=== PATIENT | female | born 1980 | race Caucasian/White ===

== ENCOUNTER → 2021-10-04 12:14 | Outpatient (CLI) | payer OTHER, SELFPAY ==
--- NOTE | ~2021-10-04 | MM_ITS ---
EXAMINATION: MM scrn thao implant BI w ramakrishna HISTORY: Screening mammogram TECHNIQUE: Craniocaudal and mediolateral oblique 3-D tomosynthesis images with implant displacement a nd synthetic 2-D images were generated. Craniocaudal and mediolateral oblique views of the breasts wi thout implant displacement were obtained using full field digital mammography. CAD analysis was submi tted and interpreted. COMPARISON: None, baseline BREAST PARENCHYMAL COMPOSITION: The breasts are extremely dense, which lowers the sensitivity of mamm ography. FINDINGS: There is no evidence of suspicious mass, calcification, or architectural distortion to sugg est malignancy in either breast. IMPRESSION: 1. No mammographic evidence of malignancy. 2. Recommend routine screening mammography in one year. BI-RADS Category 1: Negative Reviewed, dictated and finalized at location A. [employer]
== END ==
PROVIDERS: Visit Provider Obstetrics & Gynecology
DX: Z12.31 Encounter for screening mammogram for malignant neoplasm of breast (principal)
CPT/HCPCS: 77063; 77067

== ENCOUNTER → 2023-02-21 13:19 | Outpatient (CLI) | payer OTHER, SELFPAY ==
--- NOTE | ~2023-02-21 | MM_ITS ---
EXAMINATION: MM scrn thao implant BI w ramakrishna HISTORY: Screening mammogram TECHNIQUE: Craniocaudal and mediolateral oblique 3-D tomosynthesis images with implant displacement a nd synthetic 2-D images were generated. Craniocaudal and mediolateral oblique views of the breasts wi thout implant displacement were obtained using full field digital mammography. CAD analysis was submi tted and interpreted. COMPARISON: 10/04/2021 bilateral implant screening mammogram BREAST PARENCHYMAL COMPOSITION: The breasts are extremely dense, which lowers the sensitivity of mamm ography. FINDINGS: Status post bilateral augmentation mammoplasty. Occasional benign calcifications. There is no evidence of suspicious mass, calcification, or architectural distortion to suggest malignancy in e ither breast. There has been no suspicious interval change. IMPRESSION: 1. No mammographic evidence of malignancy. 2. Recommend routine screening mammography in one year. BI-RADS Category 1: Negative Reviewed, dictated and finalized at location A.
== END ==
PROVIDERS: PCP Registered Nurse; Visit Provider Obstetrics & Gynecology
DX: Z12.31 Encounter for screening mammogram for malignant neoplasm of breast (principal)
CPT/HCPCS: 77063; 77067

== ENCOUNTER 2025-05-23 00:53 | Day surgery (SDC) | payer OTHER, SELFPAY ==
[2025-05-02 10:55] VITALS: BMI 20.5
--- OUTSIDE RECORDS SUMMARY | 2025-05-23 00:56 | XMS_ITS | Data Portability ---
Author Organization [facility] Address [address] [place] [address] Care Team Providers Care Credit Front Office Developer Name Role Phone STEPHAN KAMINSKI Primary Care Provider [phone] Assessment Encounter Date Assessment Date Assessment LastModified by Organization Details LastModified Time 09/28/2022 09/28/2022 metrogel vulvar care guidelines discussed FU WWE [email or web address] Not available 09/30/2022 08:18:26 12/28/2022 12/28/2022 healthy female exam patient declines std testing pap done, discussed colpo if still ASCUS since persistent since 2019 even though HPV neg mammogram encouraged, scheduled next month contraception-va sectomy will try Rephresh gel at onset of BV sx FU 1 year or prn [email or web address] Not available 12/28/2022 12:32:34 01/11/2024 01/11/2024 Annual gynecological exam performed. Patient will come back in a year unless there are new symptoms. [email or web address] Not available 01/11/2024 18:17:36 01/08/2025 01/08/2025 Annual gynecological exam performed. Patient will come back in a year unless there are new symptoms. [email or web address] Not available 01/08/2025 14:07:35 Plan of Treatment Reminders Order Date Submit Date Provider Last Modified By Organization Details Last Modified Time Details Appointments None recorded. Lab pap, IG + HR HPV - HPV regardless but if HPV is positive need subtyping 16,18/[address]/GC/Tric h 2024 025 [facility] (Lab), [address], [place], [address], 5 17:10:45 HBsAg (hepatitis B surface Ag), serum 2024 025 [facility] (Lab), [address], [place], [address], 5 20:30:58 Referral None recorded. Procedures colonoscop y screening (PROC) 2024 025 [facility], [address], [address], [place], [address], 5 15:08:03 Surgeries None recorded. Imaging MAMMO, screening, digital, bilateral 2024 025 [facility], [address], [place], [address], 5 14:22:38 MAMMO, screening, bilateral 2023 024 [email or web address] [facility], [address], [place], [address], 4 15:12:23 Medication Orders metronidaz ole 0.75 % (37.5 mg/5 gram) vaginal gel 2021 [facility]22 [id number], [address], [place], [place], [id number], 3 09:25:33 Patient TargetsNo targets recorded. Patient InstructionsNo instructions recorded. Reason for Referral None Reported. Results Created Date Observation Date Name Description Value Unit Range Abnormal Flag Note LastModifiedBy Organization Detail LastModifiedTime 12/28/1912/28/2022 IMAGE GUIDE D PAP AND HPV REGAR DLESS image guided Pap, HPV regardless of Pap result SEE RESULT S BELOW CASE REPOR T: Cytol ogy Gynec ologi chintan Repor t Case: [id number] Autho ray morrow Provi barb: Mireya Kuo MD Colle cted: 12/28 1232 Order ing Locat ion: [place] Patho logy Recei gabriele: 12/29 0649 First Scree n: Chanda Mcpherson ret, CT Speci men: Scree colt Pap - Image d, Cervi x STATE MENT OF ADEQU ACY: Satis facto ry for evalu ation Trans forma tion zone compo nent prese nt FINAL DIAGN OSIS: Negat marisol for Intra epith elial Lesio n or Ewelina kay (NIL) . Elect eduardo navarro yamileth d by Chanda Mcpherson ret, CT on 2022 at 6:27 AM ----- ----- ----- ----- ----- ----- ----- ----- ----- ----- ----- ----- ----- ----- ----- ----- ----- ---- HPV RESUL TS: HPV mRNA E6/E7 : No HPV mRNA Detec jeanine NOTE: This high risk HPV mRNA assay detec ts fourt een high- risk HPV types (16, 18, 31, 33, 35, 39, 45, 51, 52, 56, 58, 59, 66, 68) witho ut diffe renti ation . COMME NT: Note: This speci men was revie wed by a Cytot echno logis t and/o r Patho logis t (as indic ated in this repor t) after evalu ation using the Thinp rep Imagi ng Syste m. CLINI CHINTAN INFOR MATIO N: Menst rual Statu s: LMP (if appli cable ): Clini chintan Histo ry/Pr eviou s Pap: Type of Neopl bernie (if appli cable ): Signi fican t Clini chintan Findi ngs: Other Histo ry: Hormo mena (if appli cable ): PAP EDUCA ALEJANDRO L NOTE: The Pap Test is a scree colt test with an inher ent false negat marisol rate. Liqui d-bas ed sampl ing may decre ase, but will not elimi robyn, false negat marisol resul ts. A negat marisol resul t does not precl ude the prese nce and/o r devel opmen t of disea se, since the prese nce of abnor mal cells in the sampl e depen ds on the locat ion of the lesio n and sampl ing techn ique. Lindsey nued regul ar scree colt is the best metho d of cance r preve ntion . If repor jeanine cytol ogic findi ng do not corre late with physi chintan and/o r histo rical findi ngs, furth er inves tigat ion is recom danilo d, as clini jesika milian nted. 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 Satinder carson d by Dion Caceres MD on 024 at 2:03 PM ----- ----- ----- ----- ----- ----- ----- ----- ----- ----- ----- ----- ----- ----- ----- ----- ----- ---- HPV RESUL TS: HPV mRNA E6/E7 : No HPV mRNA Detec jeanine NOTE: This high risk HPV mRNA assay detec ts fourt een high- risk HPV types (16, 18, 31, 33, 35, 39, 45, 51, 52, 56, 58, 59, 66, 68) witho ut diffe renti ation . COMME NT: This speci men was revie wed by a Cytot echno logis t and/o r Patho logis t (as indic ated in this repor t) after evalu ation using the Thinp rep Imagi ng Syste m. CLINI CHINTAN INFOR MATIO N: Menst rual Statu s: LMP (if appli cable ): 12/24 Clini chintan Histo ry/Pr eviou s Pap: Type of Neopl bernie (if appli cable ): Signi fican t Clini chintan Findi ngs: Other Histo ry: Hormo mena (if appli cable ): PAP EDUCA ALEJANDRO L NOTE: The Pap Test is a scree colt test with an inher ent false negat marisol rate. Liqui d-bas ed sampl ing may decre ase, but will not elimi robyn, false negat marisol resul ts. A negat marisol resul t does not precl ude the prese nce and/o r devel opmen t of disea se, since the prese nce of abnor mal cells in the sampl e depen ds on the locat ion of the lesio n and sampl ing techn ique. Lindsey nued regul ar scree colt is the best metho d of cance r preve ntion . If repor jeanine cytol ogic findi ng do not corre late with physi chintan and/o r histo rical findi ngs, furth er inves tigat ion is recom danilo d, as clini jesika milian nted. Not Available [facility] (Lab) [address], [place], [address], 01/18/2024 15:05:51 01/08/2001/08/2025 HBSAG /HCV/ HIV/R HI hepatitis B surface antigen Non-re active non-re active This assay was perfo rmed using [facility] Cor[employer] ratio n reage nts and test kits. Value s obtai dex with other assay metho ds or kits canno t be used inter short eably . Not Available [facility] (Lab) [address], [place], [address], 01/09/2025 20:30:58 01/08/2001/08/2025 HBSAG /HCV/ HIV/R HI HIV antigen/anti body Reacti ve nonrea ctive abnormal This is a scree colt test. Refer to the confi rmato ry HIV 1/2 Antib susie Diffe renti ation resul ts. A confi rmato ry HIV-1 and HIV-2 Antib susie Diffe renti ation test will be perfo rmed on this speci men. Not Available [facility] (Lab) [address], [place], [address], 01/09/2025 20:30:58 01/08/20 25 01/08/2025 HBSAG /HCV/ HIV/R HI hepatitis C antibody Non-re active non-re active Antib odies to HCV Not Detec jeanine, does not exclu de the possi bilit y of expos ure to HCV. Not Available [facility] (Lab) [address], [place], [address], 01/09/2025 20:30:58 01/08/2001/08/2025 HBSAG /HCV/ HIV/R HI RPR qualitative Nonrea ctive nonrea ctive Not Available [facility] (Lab) [address], [place], [address], 01/09/2025 20:30:58 01/08/20 25 01/08/2025 HIV 1/2 ANTIB SUSIE DIFFE RENTI ATION HIV-1 Ab differentiat ion Negati ve negati ve Not Available [facility] (Lab) [address], [place], [address], 01/09/2025 20:30:59 01/08/20 25 01/08/2025 HIV 1/2 ANTIB SUSIE DIFFE RENTI ATION HIV-2 Ab differentiat ion Negati ve negati ve Not Available [facility] (Lab) [address], [place], [address], 01/09/2025 20:30:59 01/08/20 25 01/08/2025 IMAGE GUIDE D PAP AND HPV REGAR DLESS image guided Pap, HPV regardless of Pap result SEE RESULT S BELOW abnormal CASE REPOR T: Cytol ogy Gynec ologi chintan Repor t Case: [id number] Autho ray g Provi barb: Adriana duque, Layne , ANP, 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 This assay can diffe renti ate HPV 16 from HPV 18/45 , but does not diffe renti ate betwe en HPV 18 and HPV 45. A negat marisol HPV 16, 18/45 genot ype assay resul t does not exclu de the possi bilit y of cytol ogic abnor malit ies or of futur e or under lying ABIGAIL 1, ABIGAIL 3 or cance r. COMME NT: This speci men was revie wed by a Cytot echno logis t and/o r Patho logis t (as indic ated in this repor t) after evalu ation using the Thinp rep Imagi ng Syste m. CLINI CHINTAN INFOR MATIO N: Menst rual Statu s: LMP (if appli cable ): Clini chintan Histo ry/Pr eviou s Pap: Type of Neopl bernie (if appli cable ): Signi fican t Clini chintan Findi ngs: Other Histo ry: Hormo mena (if appli cable ): SUGGE STED FOLLO W-UP: Follo w up as warra nted, based on curre nt guide lines and indiv idual patie nt consi derat ions. Not Available [facility] (Lab) [address], [place], [address], 01/13/2025 17:10:45 01/08/20 25 01/08/2025 TRICH OMONA S VAGIN TERRENCE (RRNA ) trichomonas vaginalis ribosomal RNA (rrna) Negati ve negati ve Not Available [facility] (Lab) [address] [place], [address], 01/13/2025 17:10:45 01/08/20 25 01/08/2025 CT/GC (DAMNO) , THINP REP VIAL chlamydia trachomatis, PCR Negati ve negati ve Not Available [facility] (Lab) [address], [place], [address], 01/13/2025 17:10:46 01/08/20 25 01/08/2025 CT/GC (DAMON) , THINP REP VIAL neisseria gonorrhoeae, PCR Negati ve negati ve Not Available [facility] (Lab) [address], [place], [address], 01/13/2025 17:10:46 01/14/20 25 01/13/2025 HIV 1/2 ANTIB SUSIE DIFFE RENTI ATION HIV-1 Ab differentiat ion Negati ve negati ve Not Available [facility] (Lab) [address], [place], [address], 01/18/2025 14:23:52 01/14/20 25 01/13/2025 HIV 1/2 ANTIB SUSIE DIFFE RENTI ATION HIV-2 Ab differentiat ion Negati ve negati ve Not Available [facility] (Lab) [address], [place], [address], 01/18/2025 14:23:52 01/14/20 25 01/13/2025 HIV 1/2 ANTIG EN/AN TIBOD Y, REFLE X CONFI RMATI ON HIV antigen/anti body Reacti ve nonrea ctive abnormal This is a scree colt test. Refer to the confi rmato ry HIV 1/2 Antib susie Diffe renti ation resul ts. A confi rmato ry HIV-1 and HIV-2 Antib susie Diffe renti ation test will be perfo rmed on this speci men. Not Available [facility] (Lab) [address], [place], [address], 01/18/2025 14:23:52 01/14/20 25 01/13/2025 HIV-1 , QUANT ITATI VE, RT PCR (GRAP HICAL ) HIV 1 RNA by PCR <20 copie s/mL HIV-1 RNA not detec jeanine The repor table range for this assay is 20 to 10,00 0,000 copie s HIV-1 RNA/m L. Not Available [facility] (Lab) [address], [place], [address], 01/18/2025 14:23:52 01/14/20 25 01/13/2025 HIV-1 , QUANT ITATI VE, RT PCR (GRAP HICAL ) log10 HIV-1 RNA Unabl e to calcu late resul t since non-n umeri c resul t obtai dex for compo nent test. Perfo rmed at: 01 - [facility] [place] [address] , [place] [address] [address]: Pastora crowe MD, Phone : [phone] Not Available [facility] (Lab) [address], [place], [address], 01/18/2025 14:23:52 01/14/20 25 01/13/2025 HIV-2 , DNA/R NA QUALI TATIV E, REAL- TIME PCR HIV-2 DNA/RNA NOT DETECT ED REFER ENCE RANGE : NOT DETEC JEANINE This test was devel oped and its orlando tical perfo rmanc e adilia cteri stics have been deter mined by [facility]. It has not been clear ed or appro gabriele by FDA. This assay has been valid ated pursu ant to the CLIA regul ation s and is used for clini chintan purpo ses. Test Perfo rmed by: [facility] [id number] [place] [address] Not Available [facility] (Lab) [address], [place], [address], 01/18/2025 14:23:53 02/06/20 25 02/10/2025 BIOPS Y, ENDOC ERVIC AL endocervical curettage histology Negati ve normal Not Available [facility] ([facility]) [address], [place], [address], 02/10/2025 14:55:06 02/06/20 25 02/10/2025 BIOPS Y, ENDOC ERVIC AL results GROSS ING INFOR MATIO N: (B1) ENDOC ERVIX Recei gabriele in forma malena on a ECC brush is a 2.5 cm aggre gate of red-b rown mater ial, total ly submi tted. B1 DIAGN OSIS: (B1) ENDOC ERVIX Benig n ectoc ervic al and endoc ervic al tissu e. No intra epith elial lesio n. UNSP ABNOR MAL CYTOL OG FINDI NGS IN SPECM N FROM CERVI X UTERI (R87. 619) Not Available [facility] ([facility]) [address], [place], [address], 02/10/2025 14:55:06 02/22/20 23 02/21/2023 MAMMO , scree colt, bilat eral No observ ation record ed. [email or web address] [facility] [address], [place], [address], 01/11/2024 18:22:42 Result Notes None recorded. Problems Name Problem SNOMED Code Status Onset Date Resolution Date Notes Provider Name and Address Organization Details Recorded Time SNOMED CT Concept Completed 201603/26/2021 Encntr for dope heater exam (general ) (routine ) w/o abn findings ;Practic e ID: 0001 Mireya Lopez MD [address], [place], [address], [facility] 10:07:38 Acne [id number] Completed 201703/26/2021 Acne, unspecif ied;Prac katie ID: 0001 Mireya Lopez MD [address], [place], [address], [facility] [address] 10:06:[address] Concept Completed 201803/26/2021 Encntr for general adult medical exam w/o abnormal findings ;Practic e ID: 0001 Mireya Lopez MD [address], [place], [address], [facility] 1 10:07:34 Emotiona l state finding Completed 201803/26/2021 Other specifie d anxiety disorder s;Practi ce ID: 0001 Mireya Lopez MD [address], [place], [address], [facility] [address] 10:07:[address] Concept Completed 201803/26/2021 Anxiety disorder , unspecif ied;Prac katie ID: 0001 Mireya Lopez MD [address], [place], [address], [facility] 1 10:07:33 Malaise and fatigue [id number] Completed 201101/06/2014 Fatigue / Malaise; Recorded Elsewher e: No Locat ion: [facility] S ource: EHR Benefits Clerk chevy: N Practi ce ID: 0001 Willam lable Time: 10:30:00 AM Not Available [facility] 0 16:38:34 Routine antenata l care Completed 201203/26/2021 Supervis ion of other normal pregnanc y;Record ed Elsewher e: No Locat ion: [facility] S ource: EHR Benefits Clerk chevy: N Practi ce ID: 0001 Willam lable Time: 02:15:00 PM Mireya Lopez MD [address], [place], [address], [facility] 1 10:07:26 Pregnanc y test positive [id number] Completed 201201/06/2014 Pregnanc y examinat ion or test, positive result;R ecorded Elsewher e: No Locat ion: [facility] S ource: EHR Benefits Clerk chevy: N Practi ce ID: 0001 Willam lable Time: 02:15:00 PM Mireya Lopez MD [address], [place], [address], [facility] 1 10:07:21 Screenin g for malignan t neoplasm of cervix Completed 201203/26/2021 Screenin g for malignan t neoplasm s of the cervix;R ecorded Elsewher e: No Locat ion: [facility] S ource: EHR Benefits Clerk chevy: N Practi ce ID: 0001 Willam lable Time: 09:15:00 AM Mireya Lopez MD [address], [place], [address], [facility] 1 10:07:28 Constipa tion [id number] Completed 201303/26/2021 Constipa tion;Rec orded Elsewher e: No Locat ion: [facility] S ource: EHR Benefits Clerk chevy: N Practi ce ID: 0001 Willam lable Time: 01:30:00 PM Mireya Lopez MD [address], [place], [address], [facility] 1 10:07:00 Amenorrh ea [id number] Completed 201201/06/2014 Absence of menstrua tion;Rec orded Elsewher e: No Locat ion: [facility] S ource: EHR Benefits Clerk chevy: N Practi ce ID: 0001 Willam lable Time: 02:15:00 PM Mireya Lopez MD [address], [place], [address], [facility] 1 10:06:57 Speciali zed medical examinat ion Completed 201203/26/2021 Gynecolo gical Examinat ion;Raul rded Elsewher e: No Locat ion: [facility] S ource: EHR Benefits Clerk chevy: N Practi ce ID: 0001 Willam lable Time: 09:15:00 AM Mireya Lopez MD [address], [place], [address], [facility] 1 10:07:41 Removal of intraute rine device Completed 201101/06/2014 REMOVAL OF IUD;Raul rded Elsewher e: No Locat ion: [facility] S ource: EHR Benefits Clerk chevy: N Practi ce ID: 0001 Willam lable Time: 01:45:00 PM Not Available [facility] 0 16:38:35 Depressi ve disorder [id number] Completed 201508/27/2021 Depressi on;Recor ded Elsewher e: No [facility] S ource: EHR Benefits Clerk chevy: N Practi ce ID: 0001 Willam lable Time: 03:30:00 PM Tammy jose, [facility] 1 12:03:23 Vaginiti s and vulvovag initis Completed 201303/26/2021 Vaginiti s;Record ed Elsewher e: No [facility] EHR Benefits Clerk chevy: N Practi ce ID: 0001 Willam lable Time: 01:30:00 PM Mireya Lopez MD [address], [place], [address], [facility] 1 10:07:45 Postpart um care Completed 201303/26/2021 Post Followup ;Recorde d Elsewher e: No Locat ion: [facility] S ource: EHR Benefits Clerk chevy: N Practi ce ID: 0001 Willam lable Time: 11:00:00 AM Mireya Lopez MD [address], [place], [address], [facility] 1 10:07:17 Atypical squamous cells of undeterm ined signific ance on cervical Papanico laou smear [id number] Active 2011 Tammy jose, [facility] 12:03:26 Postpart um care Completed 201301/06/2014 Post Followup ;Recorde d Elsewher e: No [facility] S ource: EHR Benefits Clerk chevy: N Practi ce ID: 0001 Willam lable Time: 10:30:00 AM Mireya Lopez MD [address], [place], [address], [facility] 10:07:17 Amenorrh ea [id number] Completed 201003/26/2021 AMENORRH EA;Pract ice ID: 0001 Mireya Lopez MD [address], [place], [address], [facility] 10:06:57 Pregnanc y test positive [id number] Completed 201003/26/2021 Positive Pregnanc y Test;Pra ctice ID: 0001 Mireya Lopez MD [address], [place], [address], [facility] 10:07:21 Threaten ed miscarri age [id number] Completed 201003/26/2021 Threaten ed , antepart um;Pract ice ID: 0001 Mireya Lopez MD [address], [place], [address], [facility] 10:07:48 Primigra catie [id number] Completed 201003/26/2021 Supervis ion of normal first pregnanc y;Practi ce ID: [address], [place], [address], [facility] 10:07:24 anatomy study Completed 201003/26/2021 [facility] SURVEY;P ractice ID: 0001 Mrieya Lopez MD [address], [place], [address], [facility] 1 10:07:10 Excessiv e growth affectin g manageme nt of mother [id number] Completed 201003/26/2021 GROWTH LARGE LGA;Prac kaite ID: 0001 Mireya Lopez MD [address], [place], [address], [facility] 1 10:07:08 Postpart um care Completed 201101/06/2014 Routine postpart um follow-u p;Record ed Elsewher e: No Locat ion: [facility] S ource: EHR Benefits Clerk chevy: N Practi ce ID: 0001 Willam lable Time: 09:30:00 AM Mireya Lopez MD [address], [place], [address], [facility] 1 10:07:17 Adult health examinat ion Completed 201403/26/2021 ROUTINE MEDICAL EXAM;Rec orded Elsewher e: No Locat ion: [facility] S ource: EHR Benefits Clerk chevy: N Practi ce ID: 0001 Willam lable Time: 08:30:00 AM Mireya Lopez MD [address], [place], [address], [facility] 1 10:06:53 Insertio n of intraute rine contrace ptive device Completed 201101/06/2014 INSERTIO N OF IUD;Raul rded Elsewher e: No Locat ion: [facility] S ource: EHR Benefits Clerk chevy: N Practi ce ID: 0001 Willam lable Time: 01:00:00 PM Not Available [facility]:38[facility]37 [id number] Com[facility] 201203/26/2021 [facility] hmerz;Re corded Elsewher e: No [facility]: EHR Benefits Clerk chevy: N Practi ce ID: 0001 Willam lable Time: 09:15:00 AM Mireya Lopez MD [address], [place], [address], [facility] 1 10:07:15 Pregnanc y test negative [id number] Completed 201101/06/2014 Pregnanc y examinat ion or test, negative result;R ecorded Elsewher e: No [facility] S ource: EHR Benefits Clerk chevy: N Jonyti ce ID: 0001 Willam lable Time: 01:00:00 PM Mireya Lopez MD [address], [place], [address], [facility] 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 1 10:07:13 Abnormal heart rate [id number] Completed 201003/26/2021 Abnormal ity in heart rate or rhythm, unspecif ied as to time of onset;Pr actice ID: 0001 Mireya Lopez MD [address], [place], [address], [facility] 1 10:06:50 Delivery normal [id number] Completed 201003/26/2021 Normal delivery ;Practic e ID: 0001 Mireya Lopez MD [address], [place], [address], [facility] 1 10:07:02 Single live from singleto n pregnanc y [id number] Completed 201003/26/2021 Mother with single liveborn ;Practic e ID: 0001 Mireya Lopez MD [address], [place], [address], [facility] 10:07:30 Pregnanc y test negative [id number] Completed 201303/26/2021 Negative Pregnanc y Test;Pra ctice ID: 0001 Mireya Lopez MD [address], [place], [address], [facility] 10:07:19 History of endometr ial ablation [id number] Active 2020 Mireya Lopez MD [address], [place], [address], [facility] 10:12:09 Problem Notes None recorded. Procedures Surgical History Date Name Laterality Status Provider Name and Address Organization Details Recorded Time 02/06/20 25 Colposcopy completed JABARI HERNANDEZ MD [address], [place], [address], [facility] 02/05/2025 14:44:41 01/11/20 24 Date of Last Pap Smear completed GALO Tavares [facility] 02/05/2025 14:11:35 02/22/20 23 Date of Last Mammogram completed Rosalia Goins [facility] 01/11/2024 18:26:22 03/19/20 21 Endometrial Ablation with Hysteroscopy completed Mireya Lopez MD [address], [place], [address], [facility] 03/19/2021 10:52:16 02/17/20 21 Endometrial Biopsy completed MD [address], [place], [address], [facility] 02/17/2021 09:27:57 11/13/19 15 excision of melanoma completed [facility] 11/19/2020 17:09:05 11/13/18 98 reconstruction of anterior cruciate ligament of knee joint completed [facility] 11/19/2020 17:08:52 Breast Implants completed [facility] 11/19/2020 17:07:03 Imaging Results None recorded. Procedure Notes None recorded. Medical Equipment None Reported. Allergies No known drug allergies Medications Name Sig Start Date Stop Date Status Note LastModified by Organization Details LastModified Time prednison e 10 mg tablet 09/28 completed Not Available Not Available Not Available cefuroxim e axetil 250 mg tablet 09/28 completed Not Available Not Available Not Available ibuprofen 800 mg tablet TAKE 1 TABLET BY MOUTH 2 HOURS BEFORE PROCEDUR E 03/26 completed Not Available Not Available Not Available citalopra m 10 mg tablet take 1 tablet by oral route every day 11/15 completed Prescrib ed Elsewher e: No Locat ion: [facility] odify By: cfrieder ich Elizabetho unter DateTime : 09/04/20 10:15:00 AM Not Available Not Available Not Available valacyclo vir 1 gram tablet TAKE 2 TABLETS BY MOUTH AT ONSET OF OUTBREAK . REPEAT 2 TABLETS IN 12 HOURS. THEN 1 BY MOUTH 2 TIMES DAILY FOR 5 DAYS IF PERSISTS 09/28 completed Not Available Not Available Not Available ondansetr on HCl 8 mg tablet TAKE 1 TABLET BY MOUTH 2 HOURS BEFORE PROCEDUR E 03/26 completed Not Available Not Available Not Available metronida zole 0.75 % (37.5 mg/5 gram) vaginal gel INSERT 1 APPLICAT ORFUL VAGINALL Y EVERY DAY FOR 5 DAYS 12/28 completed Not Available Not Available Not Available Zithromax Z-Dio 250 mg tablet take 2 tablet (500MG) by oral route every day for 1 day then 1 tablet (250 mg) by oral route once daily for 4 days 02/06 completed Prescrib ed Elsewher e: No Locat ion: [facility] odify By: acacia tz Encou nter DateTime : 01/30/20 12 01:00:00 PM Not Available Not Available Not Available Diflucan 150 mg tablet Take 1 tablet by oral route for 1 day. 11/15 completed Not Available Not Available Not Available metronida zole 500 mg tablet TAKE 1 TABLET BY MOUTH TWICE DAILY FOR 7 DAYS 12/28 completed Not Available Not Available Not Available sulfameth oxazole 800 mg-trimet hoprim 160 mg tablet TAKE 1 TABLET BY MOUTH TWICE DAILY FOR 7 DAYS completed Not Available Not Available Not Available hydrocodo ne 10 mg-acetam inophen 325 mg tablet TAKE 1 TABLET BY MOUTH 2 HOURS BEFORE PROCEDUR E 03/26 completed Not Available Not Available Not Available alprazola m 0.5 mg tablet TAKE 1 TABLET BY MOUTH 2 HOURS BEFORE PROCEDUR E 03/26 completed Not Available Not Available Not Available Claritin- D 12 Hour 5 mg-120 mg tablet,ex tended release take 1 tablet by oral route every 12 hours 06/07 completed Prescrib ed Elsewher e: Yes Loca tion: [facility] odify By: angle Linda ncounter DateTime : 04/14/20 15 08:30:00 AM Not Available Not Available Not Available Nor-Q-D 0.35 mg tablet take 1 tablet by oral route every day 04/08 completed Prescrib ed Elsewher e: No Locat ion: [facility] odify By: earnest casiano DateTime : 01/06/20 14 10:30:00 AM Not Available Not Available Not Available Vitamin D2 1,250 mcg (50,000 unit) capsule take 1 capsule ([id number] ITS) by oral route every week 04/08 completed Prescrib ed Elsewher e: No Locat ion: [facility] odify By: earnest casiano DateTime : 06/20/20 13 02:34:13 PM Not Available Not Available Not Available Terazol 7 0.4 % vaginal cream insert 1 applicat orful by vaginal route every day for 7 days at bedtime 04/15 completed Prescrib ed Elsewher e: No Locat ion: [facility] odify By: cmedical Encount er DateTime : 04/09/20 13 11:41:51 AM Not Available Not Available Not Available cefdinir 300 mg capsule 09/28 completed Not Available Not Available Not Available NuvaRing 0.12 mg-0.015 mg/24 hr vaginal insert 1 vaginal ring by vaginal route every month leave in place for 3 weeks, remove for 1 week 05/26 completed Prescrib ed Elsewher e: No Locat ion: [facility] odify By: belgica del cidunter DateTime : 04/08/20 14 08:30:00 AM Not Available Not Available Not Available Lexapro 10 mg tablet take 1 tablet by oral route every day 04/14 completed Prescrib ed Elsewher e: No Locat ion: [facility] odify By: yolanda casiano DateTime : 05/26/20 14 01:30:00 PM Not Available Not Available Not Available 10 mg-[address] by Topical route every USE ASS NEEDED WITH INTERCOU RSE 04/08 completed Prescrib ed Elsewher e: Yes Loca tion: [facility] odify By: earnest casiano DateTime : 01/06/20 14 10:30:00 AM Not Available Not Available Not Available Triveen-D uo DHA 29 mg-1 mg-400 mg oral pack take 2 by Oral route every day for 30 days 05/28 completed Prescrib ed Elsewher e: No Locat ion: [facility] odify By: quang Linda ncounter DateTime : 04/29/20 13 02:15:00 PM Not Available Not Available Not Available PNV OB+DHA 27 mg-1 mg-50 mg-250 mg oral pack take 1 by Oral route every day 04/04 completed Prescrib ed Elsewher e: No Locat ion: [facility] odify By: yolanda casiano DateTime : 10/11/20 11 08:30:00 AM Not Available Not Available Not Available Vitals Date Recorded Body height Body mass index (BMI) Body weight Systolic And Diastolic Provider Name and Address Organization Details Last Updated DateTime 12/28/2022 160.02 cm 22.1 kg/m2 33304.05 g 125/81 mm[Hg] [facility] 12/28/2022 12:15:15 Date Recorded Body height Body mass index (BMI) Body weight Systolic And Diastolic Provider Name and Address Organization Details Last Updated DateTime 01/08/2025 160.02 cm 22.5 kg/m2 94651.23 g 114/72 mm[Hg] Sonam Bautista [facility] 01/08/2025 14:08:13 Date Recorded Body weight Systolic And Diastolic Provider Name and Address Organization Details Last Updated DateTime 01/11/2024 58642.98 g 100/65 mm[Hg] Rosalia Buster [facility] 01/11/2024 18:18:36 Date Recorded Body height Body mass index (BMI) Body weight Systolic And Diastolic Provider Name and Address Organization Details Last Updated DateTime 02/05/2025 160.02 cm 22.3 kg/m2 28065.64 g 99/67 mm[Hg] GALO Tavares [facility] 02/05/2025 14:11:21 Date Recorded Body height Body mass index (BMI) Body weight Systolic And Diastolic Provider Name and Address Organization Details Last Updated DateTime 09/28/2022 160.02 cm 22.1 kg/m2 05099.05 g 109/71 mm[Hg] [facility] 09/28/2022 14:52:33 Social History Question Answer Notes LastModified by Organizat ion Details LastModified Time Tobacco Smoking Status Never Smoker [facility] 08/27/2021 12:03:15 Do You Have An Advance Directive? No [email or web address] Information n ot available 01/08/2025 How Many Years Have You Consumed Alcohol? 24 [email or web address] Information not available 02/05/2025 Are You Blind Or Do You Have Difficulty Seeing? No [email or web address] Information n ot available 08/27/2021 What Is Your Level Of Caffeine Consumption? Moderate [email or web address] Information not available 08/27/2021 How Much Tobacco Do You Chew? None Information not available 08/27/2021 In The 14 Days Before Symptom Onset, Have You Had Close Contact With A Laboratory-confirm ed COVID-19 While That Case Was Ill? No [email or web address] Information n ot available 08/27/2021 In The 14 Days Before Symptom Onset, Have You Had Close Contact With A Person Who Is Under Investigation For COVID-19 While That Person Was Ill? No [email or web address] Information not available 08/27/2021 Have You Been To An Area Known To Be High Risk For COVID-19? No [email or web address] Information not available 08/27/2021 Are You Deaf Or Do You Have Serious Difficulty Hearing? No [email or web address] Information not available 08/27/2021 What Type Of Diet Are You Following? REGULAR [email or web address] Information n ot available 08/27/2021 What Is The Highest Grade Or Level Of School You Have Completed Or The Highest Degree You Have Received? [id number] [email or web address] Information not available 01/08/2025 Are There Any Guns Present In Your Home? Yes [email or web address] Information not available 02/05/2025 Do You Use Protection During Sex? No [email or web address] Information not available 01/08/2025 Do You Use Your Seat Belt Or Car Seat Routinely? Yes [email or web address] Information not available 08/27/2021 Do You Have Smoke And Carbon Monoxide Detectors In Your Home? Yes Information not available 08/27/2021 How Much Tobacco Do You Smoke? No [email or web address] Information not available 08/27/2021 Do You Use Sunscreen Routinely? Yes [email or web address] Information not available 08/27/2021 Have You Used IV Drugs? No [email or web address] Information not available 08/27/2021 Sex: Unknown Functional Status Question Answer Note LastModified by Organizat ion Details LastModified Time Do you use any illicit or recreational drugs? No [email or web address] Information not available 08/27/2021 What is your level of alcohol consumption? Occasional Information not available 02/05/2025 Are you able to walk? 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 Moderate [email or web address] Information not available 08/27/2021 Mental Status Question Answer Note LastModified by Organization D etails LastModified Time Do you feel stressed (tense, restless, nervous, or anxious, or unable to sleep at night)? [id number] [email or web address] Information not available 02/05/2025 Family History Relationship Description Onset Age of this Age Resolved Age Notes LastModified by Organization Details LastModified Time Father Malignant melanoma [email or web address] Not available 2020 17:08:34 Mother Malignant melanoma [email or web address] Not available 2020 17:08:34 Medical History Condition Response Allergies (Food, seasonal, environmental ) N Other N Breast Cancer N Drug/Latex Allergies/Reactions N Blood Transfusion N Dermatologic Disorders N Lung Disease N Defects or Inherited Disease N Breast Problem N Gestational Diabetes N Hematologic disorders N Anesthesia Complications N History of STI N Deep Vein Thrombosis N Polycystic ovary syndrome N Anxiety Disorder N Autoimmune disease N Arthritis N Infertility N Polyps N Acid Reflux (GERD) N History of abnormal pap Y Cancer N Stroke N Varicosities N Neurologic/Epilepsy N Endometriosis N High Cholesterol N Headaches N Fibromyalgia N Kidney Disease N Heart Problems N Kidney or Bladder Problems N Thyroid Problems N GI Problems N Eating Disorder N Anemia N Art (IVF or FET) N Psychiatric Illness N Ovarian Cancer N Diabetes N Pulmonary (TB, Asthma) N Hepatitis/Liver Disease N No Past Medical History N Eczema N Urinary Tract Infection N Abuse/Domestic Violence N Asthma N Trauma/Violence N Depression/ depression N Heart Disease N Pre-Eclampsia N Hypertension N Osteoporosis N Thrombophilias N Gynecological History Statement/Question Response Abnormal Pap Y Date of Last Mammogram 02/21/2023 Flow Moderate Date of LMP 01/26/2025 On BCP's at Conception? N N Was last menstrual period normal Y STIs/STDs N HPV Vaccine N Duration of Flow (days) 5 Current Control Method Partner Vas ectomy Age at First Child 31 Frequency of Cycle (Q days) 28 Sexually Active? Y Age of first menstrual cycle 13 Date of Last Pap Smear 01/11/2024 Sexual Problems? N Desired Control Method None LMP Definite Y Obstetrics History GPAL:G 2 P 2 0 0 2 Type Value Full Term 2 Living 2 Total 2 Past Encounters Encounter ID Performer Location Encounter Start Date Encounter Closed Date Diagnosis/Indication Diagnosis SNOMED-CT Code Diagnosis ICD10 Code Diagnosis Note [id number] Jasvir Isbell MD [place] [address] [address] 11/19/2020 16:54:09 11/20/2020 12:18:30 Menorrhagia 896790267 N92.0 This patient is a 40-year-ol d female presents for heavy vaginal bleeding. She has longstandi ng very heavy bleeding. Her menses are regular. However, they require double protection . Patient has accidents, getting blood on her bedding and clothing. It affects her work life.She changes a pad or tampon every hour. She leaks blood around the pad ortampon. This bleeding has a profound impact on her quality of life and her activities of daily living. The patient is interested in endometria l ablation. We reviewed medical options and then spoke about endometria l ablation detail. I described the procedure to the patient. Weviewed a video illustrati on of the endometria l ablation. I told her about the office procedure and it could be done the operating room. Talked about risks. We talked about medication s required for office procedure. We spent more than 25 minutes face-to-fa ce. We are going to obtain pelvic ultrasound . We will discuss those results. We will consider going ahead with the ablation. Patient declined IUD. the patient's has a vasectomy. [id number] Jasvir Isbell MD [place] [address] [address] 01/14/2021 09:55:20 01/14/2021 11:16:11 Menorrhagia 425872615 N92.0 this patient is a 40-year-ol d female presents for menorrhagi a. We have agreed to perform endometria l ablation. She understand s the risks, benefits, and alternativ es. She has completed the informed consent process and is ready to proceed. Preoperative state 65258 002 Z78.9 [id number] Jasvir Isbell MD [place] [address] [address] 01/14/2021 10:03:46 01/14/2021 10:53:12 Menorrhagia 513012661 N92.0 This patient is a 40-year-ol d female presents for heavy vaginal bleeding. She has longstandi ng very heavy bleeding. Her menses are regular. However, they require double protection . Patient has accidents, getting blood on her bedding and clothing. It affects her work life.She changes a pad or tampon every hour. She leaks blood around the pad ortampon. This bleeding has a profound impact on her quality of life and her activities of daily living. The patient is interested in endometria l ablation. We reviewed medical options and then spoke about endometria l ablation detail. I described the procedure to the patient. Weviewed a video illustrati on of the endometria l ablation. I told her about the office procedure and it could be done the operating room. Talked about risks. We talked about medication s required for office procedure. We spent more than 25 minutes face-to-fa ce. We are going to obtain pelvic ultrasound . We will discuss those results. We will consider going ahead with the ablation. Patient declined IUD. the patient's has a vasectomy. [id number] Mireya Lopez MD [place] [address],[place] [address] 02/16/2021 16:45:50 02/16/2021 22:43:46 Menorrhagia 839384099 N92.0 test negative 734168584 Z32.02 Preoperative state 33995 002 Z78.9 [id number] Mireya Lopez MD [place] [address] [place] [address] 03/19/2021 09:41:00 03/19/2021 11:13:55 test negative 700565495 Z32.02 Menorrhagia 558071210 N9 2.0 [id number] MD Jeannie Reynoso [address],[place] [address] 03/26/2021 09:48:33 03/26/2021 10:58:45 Postoperative visit 164616002 Z09 [id number] Mireya Lopez MD [place] [address],[place] [address] 08/27/2021 11:57:19 09/03/2021 18:56:28 Gynecologic examination 65857447 Z01.419 Z11.51 Menorrhagia 141632409 N9 2.0 [id number] Mireya Lopez MD [place] [address],[place] [address] 09/28/2022 14:42:06 09/30/2022 14:51:00 Bacterial vaginosis 300167815 N76.0 [id number] Mireya Lopez MD [place] [address],[place] [address] 12/28/2022 12:05:55 12/28/2022 12:57:29 Gynecologic examination 32311265 Z01.419 Z11.51 [id number] Halima Velez [facility] [address],[place] [address] 01/11/2024 18:11:03 01/12/2024 00:52:43 Gynecologic examination 11549771 Z01.419 Suggested Calcium with Vitamin D 1200-1500m g daily. Patient advised to get an annual flu shot in the fall and she could obtain at [facility] or [facility]. Also to obtain TDap vaccinatio n if you have not had one in the last 10 years. Recommend yearly mammograms . Encouraged monthly self breast exams. Encourage safe sexual practices, to use condoms and limit partners if not already in a monogamous relationsh ip. Engage in daily exercise of low impact aerobic exercise 45-60 minutes 4-5 times weekly. Avoid tobacco and illicit drugs as well as using moderation with alcohol intake less than 1-2 8 oz beverages daily. This lifestyle behavior pattern will lead to less health conditions and longer life span. If BMI greater than 25 weight watchers or dietary consult advised. All questions have been answered. Patient appears to understand informatio n, but if you have any questions please call or respond to this email.Pap/ hpv sentSTD Screen declinedGe netic Screen discussedC olon Screen naDexa Screen naRoutine Labs PCP Screening mammography 24 020297 Z12.31 [id number] Jasvir Isbell MD [place] [address],[place] [address] 01/08/2025 13:54:05 01/08/2025 14:48:06 Gynecologic examination 36161697 Z01.419 Annual gynecologi chintan exam performed. Patient will come back in a year unless there are new symptoms. Suggest Calcium with Vitamin D if not eating in diet. Patient advised to get annual flu shot. Recommend yearly physicals and perform monthly breast exams. Genetic testing is available for patients with family history of cancer. Engage in safe sexual practices, use condoms. Encouraged to have daily exercise. Avoid tobacco and illicit drugs, moderation of alcohol. If BMI greater than 25 dietary consult advised. If you have any questions please call or email. mammogram- order given, pt to schedule colon cancer screening - GI referral to [facility] - pt to schedule consult at age 45 DEXA scan- n/a Pap smear- pap w/ HPV collected laboratory evaluation - PCP STI testing - requested (previous partner cheated) Going to embody her health On prometrium /Low dose T-cream/A thyroid supplement . taking for fatigue, energy, brain fog, low libido Screening mammography 24 168457 Z12.31 Venereal d isease screening 277896136 Z11.3 Pt requested STI testing.Di scussed the various types of STDs, related symptoms and the potential consequenc es (including effects on fertility) of STD infections . Reviewed ways to limit exposure and prevention techniques . Screening for malignant neoplasm of colon 452067867 Z12.11 [id number] JABARI HERNANDEZ MD [place] [address] [address] 02/05/2025 13:48:51 02/05/2025 14:53:20 Low grade squamous intraepithelial lesion on cervical Papanicolaou smear 3722723461 9105 R87.612 - Pap smear with LSIL and +HPV- colposcopy performed without issue- will follow up on results as available Health Concerns Section Related Observation LastModified by Organization Detai ls LastModified Time None Recorded Concern Status LastModified by Organization Details LastModified Time None Recorded Advance Directives Directive N: Payers Insurance Date Sequence Insurance Name Policy Number Policy Borja Covered Member ID Borja Member ID Guarantor Name 02/02/2025 1 [employer] (PP[employer] THADDEUS Patel [id number] Quita Patel 01/08/2025 1 [facility] [id number] Quita Patel [id number] Quita Patel 09/27/2022 1 [facility] [id number] Orlando Patel [id number] Quita Patel 01/08/2025 1 [facility] Quita Patel [id number] Quita Patel 12/10/2024 1 [facility] [facility] [id number] Orlando Patel [id number] Quita Patel Notes Date Note Type Note Provider Name and Address Organization Details Recorded Time 09/28/2022 text/html Here complaining of discharge with odor for a couple weeks. NO itching or irritation. no concern for stds. no urinary sx. Mireya Lopez MD [address], [place], [address], [facility] 09/30/2022 08:18:38 12/28/2022 text/html Patient is a 42y o who presents for an annual exam. Periods ok since ablation in 03/2021, still 1-2 days of moderately heavy. Had BV 2x in last 6 mos. Always after sex. last pap-Last two ASCUS neg HPV mammogram-09/2021, scheduled next month sexually active-y contraception-vase ctomy seatbelts-y exercise-y depression-denies domestic violence-denies tobacco-n concerns-n Mireya Lopez MD [address], [place], [address], [facility] 12/28/2022 12:32:58 01/11/2024 text/html Annual GYNReport ed bypatient.History: no gynecologic complaints Menstrual cycle:Normal menses Urinary symptoms:No hematuria; No incontinence Vulva:No genital lesion Vagina:Normal vaginal discharge Breast:No breast pain; No breast lump; No nipple discharge Sexual complaints:No sexual complaints; No pain during intercourse; Normal libido Menopausal Symptoms:No menopausal symptoms; Normal vaginal lubrication Psychological symptoms:No depression; No anxiety; No PMDD Going to infinite wellnessOn prometrium/Low dose T-cream/A thyroid supplement.taking for fatigue, energy, brain fog, low libido Halima Velez, [place]- [address], [place], [address], [place] [facility] 01/11/2024 19:17:01 01/08/2025 text/html Annual GYNReport ed bypatient.History: no gynecologic complaints Menstrual cycle:Normal menses Urinary symptoms:No hematuria; No incontinence Vulva:No genital lesion Vagina:Normal vaginal discharge Breast:No breast pain; No breast lump; No nipple discharge Current Contraception:Cond oms Sexual complaints:No sexual complaints; No pain during intercourse; Normal libido Menopausal Symptoms:No menopausal symptoms; Normal vaginal lubrication Psychological symptoms:No depression; No anxiety; No PMDD Preventive measures:Encourage self breast examination; Encourage regular exercise; Encourage no tobacco use; Encourage regular mammograms starting age 40 Patient presents for annual well woman exam. Patient requests STI testing as her partner cheated on her. Denies vaginal symptoms or pelvic pain.Cycles every 21-28 days, last 4 days, with moderate flow. Sonam Lily [facility], [facility] 01/08/2025 15:34:34 02/05/2025 text/html Patient presents for colposcopy indicated for LSIL with +HPV. GALO Tavares damon, [facility] 02/05/2025 15:28:02 OBGyn Episode Ob Episode Information Episode Created Date Number of Fetuses Patient Bloodtype Patient rh Status Prepregnancy Weight lbs Domestic Partner Domestic Partner Phone Father Name Municipal Court Judge Status 11/19/19 21 1 CLOSED Fetus Data First Name Last Name Admitted to NICU Weight (g) Sex Living Outcome Pediatric Complications Fetus ID Race Codes Race Delivery Type [id number] Vaginal Delivery Rob Calculation Initial Rob Date Initial Exam Date Initial Exam Provider Initial Ultrasound Date Last Menstrual Period Date Ultra Sound Weeks Gestation 0 Eighteen To Twenty Week Rob Update Ultra Sound Date Fundal Height At Umbil Quickening Date Ultra Sound Latest Weeks Gestation Final Rob Confirmed By Final Rob Confirmed Date Final Rob Date Ultra Sound Latest Days Gestation 0 0 Menstrual History Last Menstrual Date Menses Monthly On Bcp Conception Prior Menses Frequency Hcg Plus Date Menarche Onset Age Delivery Information Delivery Date Delivery Type Labor Anesthesia Weeks Gestation Incision Type Labor Labor Length Hrs Delivered By Post Complications Tubal Sterilization Discharge Date Comments 4 +GBS Discharge Information Feeding Method Contraceptive Method Maternal HG B and HCT Levels Ob Episode Information Episode Created Date Number of Fetuses Patient Bloodtype Patient rh Status Prepregnancy Weight lbs Domestic Partner Domestic Partner Phone Father Name Municipal Court Judge Status 11/19/19 21 1 CLOSED Fetus Data First Name Last Name Admitted to NICU Weight (g) Sex Living Outcome Pediatric Complications Fetus ID Race Codes Race Delivery Type [id number] Vaginal Delivery Rob Calculation Initial Rob Date Initial Exam Date Initial Exam Provider Initial Ultrasound Date Last Menstrual Period Date Ultra Sound Weeks Gestation 0 Eighteen To Twenty Week Rob Update Ultra Sound Date Fundal Height At Umbil Quickening Date Ultra Sound Latest Weeks Gestation Final Rob Confirmed By Final Rob Confirmed Date Final Rob Date Ultra Sound Latest Days Gestation 0 0 Menstrual History Last Menstrual Date Menses Monthly On Bcp Conception Prior Menses Frequency Hcg Plus Date Menarche Onset Age Delivery Information Delivery Date Delivery Type Labor Anesthesia Weeks Gestation Incision Type Labor Labor Length Hrs Delivered By Post Complications Tubal Sterilization Discharge Date Comments 1 2nd Degree laceratio n Discharge Information Feeding Method Contraceptive Method Maternal HG B and HCT Levels
--- OUTSIDE RECORDS SUMMARY | 2025-05-23 00:56 | XMS_ITS | Clinical Summary ---
Author Organization [facility] Address [address] [place] [id number] Care Team Providers Care Sleeve Machine Tender Name Role Phone Rose Corrales JAYLYN Primary Care Provider Allergies No known active allergies Medications No known medications Active Problems Problem Noted Date Diagnosed Date BMI 20.0-20.9, adult 01/01/2021 History of melanoma 11/13/2017 Malignant melanoma of skin ([facility]) 08/2015 Scoliosis 06/18/2015 Chronic constipation 11/25/2014 Hernia, inguinal, right 01/30/2014 Dysmenorrhea History of COVID-19 Resolved Problems Problem Noted Date Diagnosed Date Resolved Date Upper respiratory infection 01/20/2017 04/03/2023 Conjunctivitis 10/22/2015 04/03/2023 Pharyngitis 10/22/2015 04/03/2023 Sore throat 10/22/2015 04/03/2023 Encounter for preventive health examination 01/30/2014 04/10/2023 Family History Medical History Relation Comments Cancer Father melanoma Father Cancer Maternal Grandmother melanoma Arthritis Mother melanoma Mother scoliosis Mother Scoliosis Sister 2 Relation Status Comments Father Maternal Grandmother Mother Alive Sister 1 Alive Sister 2 Alive Son 1 Alive Son 2 Alive Social History Tobacco Use Types Packs/Day Years Used Date Smoking Tobacco: Never Smokeless Tobacco: Never Tobacco Cessation:Counseling Given: No Alcohol Use Standard Drinks/Week Comments Yes 0 (1 standard drink = 0.6 oz pur e alcohol) social, wine PHQ-2 Answer Date Recorded PHQ-2 Score - If the patient scores above 3, please move on to questions 3-9 0 01/01/2021 Comments No Sex and Gender Information Value Date Recorded Sex Assigned at Not on file Legal Sex Female 8:29 PM CDT Gender Identity Not on file Sexual Orientation Not on file Last Filed Vital Signs Vital Sign Reading Time Taken Comments Blood Pressure 106/64 04/24/2023 1:45 PM CDT Pulse 68 04/24/2023 1:45 PM CDT Temperature 36.5 C (97.7 F) 04/24/2023 1:45 PM CDT Respiratory Rate 14 04/24/2023 1:45 PM CDT Oxygen Saturation 96% 04/24/2023 1:45 PM CDT Inhaled Oxygen Concentration - - Weight 55.8 kg (123 lb) 04/24/2023 1:45 PM CDT Height 165.1 cm (5' 5) 04/24/2023 1:45 PM CDT Body Mass Index 20.47 04/24/2023 1:45 PM CDT Plan of Treatment Health Maintenance Due Date Last Done Comments Hepatitis C 1998 DTaP, Tdap and Td Vaccines ( 1 - Tdap) 1999 Hepatitis B Vaccines (1 of 3 - 19+ 3-dose series) 1999 Cervical Cancer Screening Pa p with HPV Testing (Age 30 to 64) Every 5 Years 2010 Annual Physical 04/03/2024 04/03/2023 COVID-19 Vaccine (1 - 2023-2 5 season) 2024 PHQ-2 (Physician Glidden) 11/13/2024 Mammogram Screening 02/21/2025 02/21/2023 Cervical Cancer Screening Pa p Smear (Age 30 to 64) Every 3 Years 12/28/2025 12/28/2022, 08/27/2021 Cervical Cancer Screening wi th HPV 12/28/2025 HPV Vaccines Aged Out No longer eligi ble based on patient's age to complete this topic Meningococcal B Vaccine Aged Out No l onger eligible based on patient's age to complete this topic Meningococcal Vaccine Aged Out No albina slick eligible based on patient's age to complete this topic Pneumococcal Vaccine: Pediatrics (0 to 5 Years) and At-Risk Patients (6 to 49 Years) Aged Out No longer eligible b ased on patient's age to complete this topic RSV Immunizations Under 20 Months Aged Out No longer eligible b ased on patient's age to complete this topic Procedures Procedure Name Priority Date/Time Associated Diagnosis Comments MAMMOGRAM GENERIC (SCAN ORDER) 02/21/2023 from Last 3 Months or Most Recently Relevant to Health Maintenance Results * MAMMOGRAM GENERIC (02/21/2023) Anatomical Region Laterality Modality Other 02/21/2023 [facility] Scanned SCANNING Final Resu lt from Last 3 Months or Most Recently Relevant to Health Maintenance Insurance [facility] [place] Care Teams Sleeve Machine Tender Relationship Specialty Start Date End Date Rose Corrales APNP [address] [place] [id number] PCP - General NURSE PRACTITIONER 01/01/21
--- OUTSIDE RECORDS SUMMARY | 2025-05-23 00:57 | XMS_ITS | Clinical Summary ---
Author Organization [address] Address [address] [place] [id number] Care Team Providers Care Installer Molding And Trim Name Role Phone Rose Corrales Primary Care Provider + Allergies No known active allergies Medications progesterone (PROMETRIUM) 100 mg capsule Take 1 capsule (100 mg total) by mouth nightly 03/18/2025 Active testosterone cypionate, bulk, 100 % powder 0 01/13/2025 Active testosterone micronized, bulk, 100 % powder 0 04/16/2025 Active [place] Thyroid 30 mg tablet TAKE 1 TABLET BY MOUTH EVERY MORNING 30 MINUTES BEFORE FOOD AND MEDS 04/13/2025 Active predniSONE (DELTASONE) 10 mg tabletIndicatio ns:Poison kelly dermatitis Take 5 tablets days 1-4, take 4 tablets days 5-8, take 3 tablets days 9-12, take 2 tablets days 13-16, take 1 tablet days 17-21 61 tablet 04/19/2025 Active Active Problems Problem Noted Date Diagnosed Date Altered bowel function 05/19/2015 Family history of malignant melanoma 03/29/2014 Overview (02/16/2017): Family history of melanoma Scoliosis 03/29/2014 Overview (02/17/2017): Scoliosis Encounters Date Type Department Care Team Description 04/19/2025 7:00 PM CDT Office Visit [facility] at [address] [phone] Melanie Noriega NP Poison kelly dermatitis (Primary Dx) from Last 3 Months Immunizations Immunization Administration Dates Next Due Influenza, Trivalent, IM (MDV) 08/13/2012 Tdap 03/01/2011 Surgical History Surgery Date Site/Laterality Comments OTHER SURGICAL HISTORY 2009 Abnormal pap smear: colposcopy with biopsy ANTERIOR CRUCIATE LIGAMENT REPAIR 1998 ACL reconstruction Medical History Medical History Date Comments Hx Other Medical Abnormal pap sm ear Family History Medical History Relation Name Comments Melanoma Father 2 Family history of malignant melanoma - (Added by TW Conv) Melanoma Mother Family history of malignant melanoma - (Added by TW Conv) Scoliosis Mother Family history of scoliosis - (Added by TW Conv) Relation Name Status Comments Father 1 Alive Father 2 Mother Social History Tobacco Use Types Packs/Day Years Used Date Smoking Tobacco: Never Alcohol Use Standard Drinks/Week Comments Yes 0 (1 standard drink = 0.6 oz pur e alcohol) Comments Unknown Sex and Gender Information Value Date Recorded Sex Assigned at Not on file Legal Sex Female 12:16 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 MANAGER Gender Identity Not on file Sexual Orientation Not on file Obstetrics History Last Filed Vital Signs Vital Sign Reading Time Taken Comments Blood Pressure 113/77 04/19/2025 7:03 PM CDT Pulse 66 04/19/2025 7:03 PM CDT Temperature 36.9 C (98.5 F) 04/19/2025 7:03 PM CDT Respiratory Rate - - Oxygen Saturation 99% 04/19/2025 7:03 PM CDT Inhaled Oxygen Concentration - - Weight 56.2 kg (123 lb 12.8 oz) 04/19/2025 7:03 PM CDT Height 165.1 cm (5' 5) 05/19/2015 9:08 AM CDT Body Mass Index 20.6 05/19/2015 9:08 AM CDT Plan of Treatment Health Maintenance Due Date Last Done Comments Breast Cancer Screening-Mammogram 1980 Cervical Cancer Screening 1980 Depression Screening 1980 Hepatitis C Screening 1980 Varicella Vaccines (1 of 2 - 13+ 2-dose series) 1993 Hepatitis B Screening 1998 Regular Well Visit/Exam 18-64 1998 DTaP/Tdap/Td Vaccine (2 - Td or Tdap) 03/01/2021 03/01/2011 Influenza Vaccine (Season Ended) 2025 08/13/20 12 HPV Vaccines Aged Out No longer eligi ble based on patient's age to complete this topic Pneumococcal vaccine <65 Aged Out No longer eligible based on patient's age to complete this topic Insurance [employer] [id number] Care Teams Installer Molding And Trim Relationship Specialty Start Date End Date Rose Corrales PA [address] [place] [id number] PCP - General Nurse Practitioner 04/19/25
--- OUTSIDE RECORDS SUMMARY | 2025-05-23 00:57 | XMS_ITS | Referral Summary ---
Author Organization [address] Address [address] [place] [phone] Care Team Providers Care Test Deck Supervisor Name Role Phone Rose Corrales Primary Care Provider + Encounters Date Type Department Care Team Description 04/19/2025 7:00 PM CDT Office Visit [facility] at [address] [phone] Melanie Noriega NP Poison kelly dermatitis (Primary Dx) from Last 3 Months Allergies No known active allergies Medications progesterone (PROMETRIUM) 100 mg capsule Take 1 capsule (100 mg total) by mouth nightly 03/18/2025 Active testosterone cypionate, bulk, 100 % powder 0 01/13/2025 Active testosterone micronized, bulk, 100 % powder 0 04/16/2025 Active [place] Thyroid 30 mg tablet TAKE 1 TABLET [...] of melanoma Scoliosis 03/29/2014 Overview (02/17/2017): Scoliosis Immunizations Immunization Administration Dates Next Due Influenza, Trivalent, IM (MDV) 08/13/2012 Tdap 03/01/2011 Social History Tobacco Use Types Packs/Day Years Used Date Smoking Tobacco: Never Alcohol Use Standard Drinks/Week Comments Yes 0 (1 standard drink = 0.6 oz pur e alcohol) Comments Unknown Sex and Gender Information Value Date Recorded Sex Assigned at Not on file Legal Sex Female 12:16 AM PATENTS EXAMINER Gender Identity Not on file Sexual Orientation [...] 05/19/2015 9:08 AM CDT Plan of Treatment Not on file Insurance [employer] [id number] Care Teams Test Deck Supervisor Relationship Specialty Start Date End Date Rose Corrales PA [address] [place] [phone] PCP - General Nurse Practitioner 04/19/25
[2025-05-23 06:26] VITALS: BP 109/63; PULSE 73; RESP 18; TEMP 36.8; O2SAT 99
[2025-05-23 06:30] LABS: BEDSIDEPREGUCG Negative (Negative)
[2025-05-23] MEDS: LACTATED RINGERS 1,000 ML 150 ML IV CONT (06:34)
--- NOTE | 2025-05-23 07:15 | WPDANESEPPF ---
Anes - Initial Pre Proc Eval Procedure: Operation Date: 05/23/25 07:30 Proposed Procedures p Screening Colonoscopy - Griffin Phelps MD Date/Time: 05/23/25 07:15 Surgeon: Griffin Phelps MD Pre Op Diagnosis: Screening Patient Data Age: 44 Gender: F Height: 1.65 m Weight: 55.8 kg Last Vital Signs Temp 36.8 C 05/23/25 06:26 Pulse 73 05/23/25 06:26 Resp 18 05/23/25 06:26 BP 109/63 05/23/25 06:26 Pulse Ox 99 05/23/25 06:26 O2 Del Method Room Air 05/23/25 06:26 Allergies Allergy/AdvReac Type Severity Reaction Status Date / Time No Known Allergies Allergy Verified 05/23/25 06:24 Home Medications ?Medication ?Instructions ?Recorded ?Confirmed ?Type No Home Medications 05/02/25 05/23/25 History Laboratory Tests 05/23/25 06:26 POC Urine HCG, Qual Negative (Negative) Patient hx anesthesia problems: none Family hx anesthesia problems: none Results Review: All pre-operative results and documents have been reviewed as part of the pre-operative evaluation. [facility] Social History Social History Smoking status: Never smoker Alcohol intake: current Drinks per week: 6 Living arrangements: with family Spiritual care concerns: No Anes - Eval Final PreProcedure Day of Procedure 05/23/25 07:15 Patient weight: normal Heart: regular rate and rhythm Lungs: clear to auscultation Airway: Mallampati scale class II Neurological: alert and oriented Last oral intake: >/= 8 hours ASA classification: II Emergent: no Anesthetic plan: proceed Anesthesia type and monitoring: general GIVS and standard monitoring Results Review: All pre-operative results and documents have been reviewed as part of the pre-operative evaluation. Informed Consent: The patient's anesthetic plan and its attendant risks and benefits were discussed with the patient/family/POA. Questions were solicited and answers provided to the satisfaction of the patient/family/POA.
--- NOTE | 2025-05-23 07:24 | P.HP_ITS ---
H&P: HPI History of Present Illness Date/Time: 05/23/25 07:24 Chief Complaint: Screening colonoscopy Narrative: This is the patient's first colonoscopy. There are no GI symptoms and there is no family history of colorectal cancer. Review of Systems Review of Systems: All systems reviewed & are unremarkable except as noted in HPI and below [facility] Social History Social History Smoking status: Never smoker Alcohol intake: current Drinks per week: 6 Living arrangements: with family Spiritual care concerns: No Meds Home Medications and Allergies Home Medications ?Medication ?Instructions ?Recorded ?Confirmed ?Type No Home Medications 05/02/25 05/23/25 History Allergies Allergy/AdvReac Type Severity Reaction Status Date / Time No Known Allergies Allergy Verified 05/23/25 06:24 Vital Signs Vital Signs - 24 hr 05/23/25 06:26 Temperature 98.2 F Pulse Rate 73 Respiratory Rate 18 Blood Pressure 109/63 Pulse Oximetry 99 Oxygen Delivery Room Air Exam Const: General: cooperative and healthy appearing Resp: Effort & Inspection: normal respiratory effort and able to speak in complete sentences Auscultation: clear to auscultation bilaterally Cardio: Rate: regular rate Rhythm: regular rhythm GI: Inspection: normal to inspection GI Palp: No No hepatosplenomegaly present Auscultation: normal bowel sounds Rectal Exam: deferred Skin: General skin exam: normal color Psych: Appearance: grossly normal Mental Status: mental status grossly normal Assessment and Plan Assessment and plan (1) Encounter for screening colonoscopy: Code(s): Z12.11 - Encounter for screening for malignant neoplasm of colon Status: Acute Assessment and Plan: The patient is deemed a good candidate for the procedure. Consent signed. Will proceed.
[2025-05-23 07:43] VITALS: BP 92/56; PULSE 62; RESP 20; O2SAT 100
[2025-05-23 07:53] VITALS: BP 100/51; PULSE 65; RESP 18; O2SAT 100
[2025-05-23 08:03] VITALS: BP 100/52; PULSE 57; RESP 16; O2SAT 99
== END 2025-05-23 08:20 | disposition home or self-care (01) ==
PROVIDERS: Anesthesiology; PCP Registered Nurse; Referring Provider Student in an Organized Health Care Education/Training Program; Visit Provider Internal Medicine Gastroenterology
PROC: 0DJD8ZZ Inspection of Lower Intestinal Tract, Via Natural or Artificial Opening Endoscopic (ICD-10-PCS; CPT 45378; principal; 2025-05-23 07:30)
DX: Z12.11 Encounter for screening for malignant neoplasm of colon (principal)
CPT/HCPCS: 45378; J2003; J2704; J7120